=== PATIENT | female | born 1950 | race Caucasian/White ===

== ENCOUNTER 2022-08-30 07:04 | Outpatient (CLI) | payer MEDICARE, OTHER ==
--- NOTE | 2022-09-05 16:24 | Mammography Report ---
BILATERAL DIGITAL SCREENING MAMMOGRAM 3D/2D: 08/30/2022 CLINICAL: Routine screening. No prior exams were available for comparison. Both breasts are almost entirely fatty (category a/<25% glandular tissue). No significant masses, calcifications, or other findings are seen in either breast. IMPRESSION: NEGATIVE There is no mammographic evidence of malignancy. A 1 year screening mammogram is recommended. Based on the Tyrer Cuzick model (a risk assessment model) the patients lifetime risk is 1.7% and her 10 year risk is 1.2%. According to the ACR, ACS, and NCCN guidelines, an annual breast MRI exam barbara g with mammogram is recommended if the patients lifetime risk is 20% or greater. This exam was interpreted at Station ID: [id number]. NOTE: For mammograms, a report in lay terms will be sent to the patient. Approximately 15% of breast malignancies will not be visualized mammographically. In the management of a palpable breast mass, a negative mammogram must not discourage biopsy of a clinically suspicious lesion. Electronically Signed By: Kraig edwards/nubia:09/05/2022 07:26:00 ACR BI-RADS Category 1: Negative 3341F PARENCHYMAL PATTERN: (F) - The breast(s) demonstrate(s) diffuse fatty replacement. BI-RADS CATEGORY: (1) - 1 RECOMMENDATION: (ANNUAL) - Recommend routine annual screening mammography. [id number] 1 year screening LATERALITY: (B)
== END 2022-08-30 07:05 | disposition home or self-care (01) ==
LOC: DI.S 07:04
PROVIDERS: ATTEND Internal Medicine
DX: Z12.31 Encounter for screening mammogram for malignant neoplasm of breast (principal)

== ENCOUNTER 2023-05-23 09:18 | Emergency (ER) | payer MEDICARE, OTHER ==
[2023-05-23 09:38] VITALS: BP 176/65
--- NOTE | 2023-05-23 09:54 | XRAY Report ---
PROCEDURE: Hand 3 View RT INDICATIONS: Trauma TECHNIQUE: 3 views of the hand(s) acquired. COMPARISON: None. FINDINGS: Bones: No fractures or dislocations. Osteoarthritic changes throughout right-hand are seen with join t space narrowing, subchondral sclerosis and marginal formation more notably involving second and thi rd PIP and DIP joints. No suspicious bony lesions. Soft tissues: No suspicious soft tissue calcifications or masses. IMPRESSION: No acute bony abnormality. Osteoarthritic changes throughout right-hand as above. Reviewed by: Elan Giles MD on 05/23/2023 9:52 AM PDT Approved by: Elan Giles MD on 05/23/2023 9:52 AM PDT Station ID: [id number]
--- NOTE | 2023-05-23 10:37 | ED Physician Documentation ---
PD HPI UPPER EXT INJURY - Stated complaint Stated Complaint: RT HAND SWOLLEN - Chief complaint Chief Complaint: Ext Problem - History obtained from History obtained from: Patient - History of Present Illness Location: Right, Hand Type of injury: Fall (walking dog and tripped, landing to right hand. Bruising and swelling that persists.) Timing - onset: How many days ago (4) Improved by: Rest Worsened by: Moving, Palpating Associated symptoms: Swelling, Discolored (bruising). 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 - Allergies Allergies/Adverse Reactions: Allergies Allergy/AdvReac Type Severity Reaction Status Date / Time codeine Allergy Emesis Verified 05/23/23 09:35 - Social History Does the pt smoke?: No Smoking Status: Never smoker Does the pt drink ETOH?: No Does the pt have substance abuse?: No - Immunizations Immunizations are current?: Yes PD ED PE NORMAL - Vitals Vital signs reviewed: Yes - General General: Alert and oriented X 3, No acute distress, Well developed/nourished - Derm Derm: Normal color, Warm and dry - Extremities Extremities: Other (right hand dorsal aspect with brusiing and swelling, tender mid hand and carpals area. Normal sensation and color/cap refill in fingers. ) - Neuro Neuro: Alert and oriented X 3, No motor deficit, No sensory deficit, Normal speech Results - Vitals Vitals: Oxygen O2 Source Room air PD Medical Decision Making - ED course Complexity details: reviewed results (xray without fractures. ), considered differential (fall to hand with swelling and bruising. Can get xray to eval for fractures. ), d/w patient Departure - Departure Disposition: 01 Home, Self Care Clinical Impression: Fall from slip, trip, or stumble Qualifiers: Encounter type: initial encounter Qualified Code(s): W01.0XXA - Fall on same level from slipping, tripping and stumbling without subsequent striking against object, initial encounter Hand contusion Qualifiers: Encounter type: initial encounter Laterality: right Qualified Code(s): S60.221A - Contusion of right hand, initial encounter Condition: Stable Record reviewed to determine appropriate education?: Yes Instructions: ED Contusion Hand Comments: Your x-ray does not show any fractures. We can try to help the healing process of your hand with a splint that you can take on and off (Velcro ulnar gutter splint). I would also have you take Tylenol or ibuprofen or naproxen as needed for the pains and discomfort. Some anti-inflammatory such as the ibuprofen or naproxen taken regularly, twice daily,, may be beneficial as well. I would anticipate improvement over the next week or so. Forms: PCP List Discharge Date/Time: 05/23/23 11:35
== END 2023-05-23 11:35 | disposition home or self-care (01) ==
LOC: ED 09:18
DX: S60.221A Contusion of right hand, initial encounter (principal); W01.0XXA Fall on same level from slipping, tripping and stumbling without subsequent striking against object, initial encounter; Y93.K1 Activity, walking an animal
CPT/HCPCS: 99283

== ENCOUNTER 2024-04-17 08:27 | Outpatient (CLI) | payer MEDICARE, OTHER ==
[2024-04-17 08:43] LABS: BASOPHILS # (AUTO) 0.1 10^3/uL (0.0-0.1); BASOPHILS % (AUTO) 0.6 %; EOSINOPHILS # (AUTO) 0.1 10^3/uL (0.0-0.7); EOSINOPHILS % (AUTO) 1.4 %; HGB - HEMOGLOBIN 13.2 g/dL (12.0-16.0); LYMPHOCYTES # (AUTO) 2.2 10^3/uL (1.5-3.5); MEAN CORPUSCULAR HEMOGLOBIN 29.6 pg (27.0-31.0); MEAN CORPUSCULAR HGB CONC 32.2 g/dL (32.0-36.0); MEAN CORPUSCULAR VOLUME 91.9 fL (81.0-99.0); MEAN PLATELET VOLUME 9.6 fL (7.9-10.8); MONOCYTES # (AUTO) 0.5 10^3/uL (0.0-1.0); MONOCYTES % (AUTO) 6.7 %; NEUTROPHILS # (AUTO) 5.1 10^3/uL (1.5-6.6); NEUTROPHILS % (AUTO) 64.1 %; PLT - PLATELET COUNT 199 10^3/uL (130-450); RED BLOOD COUNT 4.46 10^6/uL (4.20-5.40); RED CELL DISTRIBUTION WIDTH 12.8 % (12.0-15.0)
[2024-04-17 08:57] LABS: ALBUMIN 4.7 g/dL (3.2-5.5); ALBUMIN/GLOBULIN RATIO 2.2 (1.0-2.2); ALKALINE PHOSPHATASE 47 IU/L (42-121); ALT ALANINE AMINOTRANSFERASE 33 IU/L (10-60); AST ASPARTATE AMINOTRANSFERASE 21 IU/L (10-42); BILIRUBIN,TOTAL 0.6 mg/dL (0.2-1.0); BUN - BLOOD UREA NITROGEN 17 mg/dL (6-20); CALCIUM 9.8 mg/dL (8.5-10.3); CARBON DIOXIDE - CO2 31 mmol/L (21-32); CHLORIDE 104 mmol/L (101-111); CHOLESTEROL 190 mg/dL; CREATININE 0.9 mg/dL (0.6-1.3); GFR - MDRD 62 (>89); GLUCOSE 104 mg/dL (74-104); HDL CHOLESTEROL 47 mg/dL; LDL CHOLESTEROL,CALCULATED 104 mg/dL; LDL/HDL RATIO 2.2 (<4.4); POTASSIUM 4.4 mmol/L (3.5-4.5); SODIUM 139 mmol/L (135-145); TOTAL PROTEIN 6.8 g/dL (6.4-8.9); TRIGLYCERIDES 195 mg/dL (48-352); VLDL CHOLESTEROL 39 mg/dL
[2024-04-17 09:13] LABS: THYROID STIMULATING HORMONE 2.28 uIU/mL (0.34-5.60)
== END 2024-04-17 08:28 | disposition home or self-care (01) ==
LOC: LAB 08:27
PROVIDERS: ATTEND Nurse Practitioner
DX: I10 Essential (primary) hypertension (principal); Z13.220 Encounter for screening for lipoid disorders; R63.5 Abnormal weight gain
CPT/HCPCS: 36415; 80053; 80061; 83721; 84443; 85025

== ENCOUNTER 2024-04-20 12:27 | Outpatient (CLI) | payer MEDICARE, OTHER ==
[2024-04-20 12:47] LABS: FECAL OCCULT BLOOD (FIT) NEGATIVE (NEGATIVE)
== END 2024-04-20 12:28 | disposition home or self-care (01) ==
LOC: LAB.R 12:27
PROVIDERS: ATTEND Physician Assistant Medical
DX: Z12.11 Encounter for screening for malignant neoplasm of colon (principal)
CPT/HCPCS: 82274

== ENCOUNTER 2024-06-09 10:51 | Outpatient (CLI) | payer MEDICARE, OTHER ==
--- NOTE | 2024-06-09 11:37 | Sleep Patient Instructions ---
Sleep Center Visit Summary - Patient Visit Information Reason for Visit: Initial consult for evaluation of sleep disordered breathing and other sleep issues. - Patient Instructions Instructions Attached: Sleep Study Additional Instructions: You will be completing a sleep study, either an in-lab polysomnography (PSG) or home sleep study (HST). You will follow-up in the sleep care office after the sleep study is completed to hear the results and talk about therapy, if needed. You will be called by our office staff to schedule this appointment, but you may contact us with any questions. - Clinic Information Contact: [facility] [address] [place] [address] [email or web address] T: [phone]
--- NOTE | 2024-06-09 11:44 | SLEEP CARE CONSULTATION ---
Information from patient questionnaire entered by Donna Santos. I have reviewed and concur with the information entered by Donna Santos. This document represents the service I personally performed and the decisions made by me, Roz Sanchez ARNP. History of Present Illness Service Date and Time: 06/09/2024 1051 Reason for Visit: New patient Chief Complaint: reports: Snoring, Excessive daytime sleepiness, Observed pauses in breathing, Frequent awakenings at night Date of Onset: at least 10 yr Usual bedtime: 2129 Time it takes to fall asleep: 10MINS Snores at night: Yes Observed to quit breathing while asleep: Yes Sleeps alone due to snoring: No (NA) Number of times waking at night: 2-3 Reasons for waking at night: reports: Snoring, Bathroom. denies: Choking, Gasping for air Toss, Turn, or Twitch while sleeping: Yes Recalls having dreams: Yes Usually gets out of bed at: 0600 Feels refreshed in the morning: Yes ("most usually", sometimes not) Morning headache: No Sleepy or fatigued during the day: Yes Ever fallen asleep while driving: No Takes day naps: No Dreams during day naps: No Prior sleep studies: No Additional HPI information: I had the pleasure of seeing GARRETT VARGAS today regarding the possibility of her having a sleep disorder. Her current complaints are excessive daytime sleepiness, frequent night awakenings, observed pauses in breathing and snoring. She says her daughter told her, after sharing motel room for a trip, that she was stopping breathing and snoring "like a transplant surgeon". She does wake herself up snoring and with a very dry throat. She does not take naps but if she sits down she can feel herself nodding off but will not take a nap. She does not want it to affect her being able to go to sleep at night. She says she walks a lot, about 2 miles a day. She has tried the Keto diet but is now just trying to make better food choices. The patient tells me that she normally goes to bed around 9:30 pm, and it takes her approximately 10 minutes to fall asleep. She has been told that she snores loudly and irregularly at night. She has been observed to stop breathing in her sleep. She can recall waking up on the average of 2-3 times during the night. Most of the time she wakes up because of bathroom and snoring. She has occasionally awakened for her own snoring. There is a lot of tossing and turning in her sleep. Generally she can recall having dreams. She usually wakes up at 0600 and feels refreshed. She usually does not have a morning headache. During the day she complains of feeling sleepy and fatigued. She has never fallen a sleep while driving nor has any accident due to sleepiness. She usually does not take naps during the day. She reports having impaired concentration during the day. There is no somniloquy (sleep talking) or somnambulism (sleep walking). - Parasomnia Symptoms Ever been unable to move upon waking from sleep: No Walks in sleep: No Talks in sleep: No Ever acted out dreams in sleep: No Ever felt weak in the knees when startled or emotional: No Bothered by creepy, crawly, restless sensations in legs: Yes (sometimes) Problems with memory or concentration: Yes (some lapses in memory) Subjective Initial [place] Sleepiness Scale score: 7 (06/09/24) Past Medical History Past Medical History: reports: Hypertension, Arthritis, GERD, Other (ESSENTIAL TREMOR, TMJD; osteoporosis) Social History The patient's occupation is a RE. Patient is Single and lives in . Have you smoked in the past 12 months: No Alcohol use: No Caffeine use: No Caffeine amount and frequency: has decaff coffee, 2 in mornings Family History Family history of sleep disordered breathing: Yes Family Hx Sleep Apnea: Mother: Snoring, Father: Snoring Allergies and Home Medications Known drug allergies: Yes ( LISTED) Drug allergies reviewed: Yes Home medication list reviewed: Yes (as listed) Allergy and home medication list: Allergies codeine Allergy (Verified 06/09/24 10:55) Emesis Home Medications Medication Instructions Recorded Confirmed Last Taken Type Acetaminophen [Tylenol] See Rx Instructions .ROUTE .COMPLEX 06/09/24 06/09/24 Unknown History Alendronate [Fosamax] See Rx Instructions .ROUTE .COMPLEX 06/09/24 06/09/24 Unknown History Ascorbic Acid [Vitamin C] See Rx Instructions .ROUTE .COMPLEX 06/09/24 06/09/24 Unknown History Calcium Carbonate See Rx Instructions .ROUTE .COMPLEX 06/09/24 06/09/24 Unknown History Cholecalciferol (Vitamin D3) See Rx Instructions .ROUTE .COMPLEX 06/09/24 06/09/24 Unknown History [Vitamin D3] Multivitamin See Rx Instructions .ROUTE .COMPLEX 06/09/24 06/09/24 Unknown History Gambrills-3 Fatty Acids [Gambrills-3] See Rx Instructions .ROUTE .COMPLEX 06/09/24 06/09/24 Unknown History Omeprazole See Rx Instructions .ROUTE .COMPLEX 06/09/24 06/09/24 Unknown History Propranolol [Inderal] See Rx Instructions .ROUTE .COMPLEX 06/09/24 06/09/24 Unknown History Valsartan See Rx Instructions .ROUTE .COMPLEX 06/09/24 06/09/24 Unknown History hydroCHLOROthiazide [Hydrodiuril] See Rx Instructions .ROUTE .COMPLEX 06/09/24 06/09/24 Unknown History Review of Systems Weight gain over past 5 years: 40 over last year Weight loss over past 5 years: 40 last year Cardiovascular: reports: high blood pressure Gastrointestinal: reports: heartburn Neurological: denies: headaches Psychiatric: denies: anxiety, depression Ear/Nose/Throat: reports: sinus problems, tonsillectomy, wisdom teeth removed Musculoskeletal: reports: joint pain Immunologic: reports: sneezing Physical Exam Vital signs obtained and entered by: DONNA Lock MA Blood Pressure: 157/78 (RIGHT ARM) Cuff size: long Heart Rate: 85 O2 Saturation: 97 Height: 5 ft 1.25 in Weight: 186 lb 9.6 oz Body Mass Index: 34.9 BMI Classification: Obese Neck circumference: 16.5 Nostrils: patent to airflow Mouth and throat: narrow oropharynx Soft palate: normal Hard palate: normal Uvula: normal Uvula visualization: 50% Mallampati Class II Tongue: normal in size Tonsils: absent bilaterally Neck: normal w/o lymphadenopathy or thyromegaly Heart: regular rate and rhythm Lungs: clear bilaterally Impression and Plan 1. Suspected Obstructive Sleep Apnea-Hypopnea Syndrome, as suggested by a histo ry of loud and irregular snoring, observed cessation of breath while asleep, frequent awakening during the night, cognitive impairment, and excessive daytime sleepiness. Narrow oropharynx and obesity are common predisposing factors for obstructive sleep apnea-hypopnea syndrome. I recommend proceeding to polysomnography to confirm the diagnosis and to assess severity. If the patient has significant sleep disordered breathing, a manual CPAP titration study will also be performed to find the optimal treatment pressure. I informed the patient of what the sleep studies involve and after some discussion, obtained agreement to proceed. The pathophysiology of obstructive sleep apnea-hypopnea syndrome was discussed with the patient and health risks of cardiovascular and cerebrovascular disease if not treated. Risks of drowsy driving discussed in detail and patient advised to avoid long distance driving and to machine tack puller at the first sign of drowsiness. Patient agreed to plan. * Schedule polysomnography * Avoid long distance driving or driving when feeling sleepy. * Avoid alcohol, sedative and muscle relaxant around bedtime. * Attempt to lose weight. * Review instructions provided by trained office staff on how to prepare for the sleep study. * Return for follow-up after sleep study completed. Counseling Topics: Weight loss health impact Plan: PSG/HST and followup Visit Type: In Office Time Spent with Patient (minutes): 30 Provider Statement: I spent 100% of the Face to Face Visit with the patient with greater than 50% spent counseling the patient and coordination of care.
[2024-06-09 11:51] VITALS: BP 157/78; O2SAT 97
== END 2024-06-09 10:52 | disposition home or self-care (01) ==
LOC: SC 10:51
PROVIDERS: ATTEND Nurse Practitioner Family
DX: R06.81 Apnea, not elsewhere classified (principal); G47.8 Other sleep disorders; R41.89 Other symptoms and signs involving cognitive functions and awareness; G47.10 Hypersomnia, unspecified; R06.83 Snoring; E66.9 Obesity, unspecified; Z68.34 Body mass index [BMI] 34.0-34.9, adult
CPT/HCPCS: 99203; G0463; 99212

== ENCOUNTER 2024-06-22 14:28 | Outpatient (CLI) | payer MEDICARE, OTHER ==
[2024-06-22 16:44] LABS: ALBUMIN 4.4 g/dL (3.2-5.5); ALBUMIN/GLOBULIN RATIO 1.8 (1.0-2.2); ALKALINE PHOSPHATASE 48 IU/L (42-121); ALT ALANINE AMINOTRANSFERASE 43 IU/L (10-60); AST ASPARTATE AMINOTRANSFERASE 27 IU/L (10-42); BILIRUBIN,TOTAL 0.4 mg/dL (0.2-1.0); BUN - BLOOD UREA NITROGEN 19 mg/dL (6-20); CALCIUM 9.5 mg/dL (8.5-10.3); CARBON DIOXIDE - CO2 27 mmol/L (21-32); CHLORIDE 103 mmol/L (101-111); CREATININE 0.9 mg/dL (0.6-1.3); CRP - C-REACTIVE PROTEIN < 0.5 mg/dL (<0.5); GFR - MDRD 62 (>89); GLUCOSE 109 mg/dL (74-104); POTASSIUM 3.8 mmol/L (3.5-4.5); SODIUM 139 mmol/L (135-145); TOTAL PROTEIN 6.8 g/dL (6.4-8.9)
[2024-06-23 19:08] LABS: THYROGLOBULIN ANTIBODY <1.0 IU/mL (0.0-0.9); THYROID PEROXIDASE (TPO) AB <9 IU/mL (0-34)
== END 2024-06-22 14:29 | disposition home or self-care (01) ==
LOC: LAB 14:28
PROVIDERS: ATTEND Obstetrics & Gynecology
DX: R10.12 Left upper quadrant pain (principal); R10.32 Left lower quadrant pain; R63.4 Abnormal weight loss; N95.1 Menopausal and female climacteric states; R23.2 Flushing
CPT/HCPCS: 36415; 80053; 81599; 86140; 86376; 86800

== ENCOUNTER 2024-06-30 07:29 | Outpatient (CLI) | payer MEDICARE, OTHER ==
[2024-06-30] MEDS ORDERED: iohexoL-300 100 ML VIAL ONE (07:35)
[2024-06-30] MEDS ORDERED: DIATRIZOATE MEGLU/DIATRIZO SOD 30 ML BOTTLE PO ONE (07:35)
[2024-06-30] MEDS: DIATRIZOATE MEGLU/DIATRIZO SOD 30 ML BOTTLE PO ONE (09:07)
[2024-06-30] MEDS: iohexoL-300 100 ML VIAL IVP ONE (09:08)
--- NOTE | 2024-06-30 15:03 | CT Report ---
PROCEDURE: Abdomen/Pelvis W INDICATIONS: ABN WEIGHT LOSS, ABD PAIN CONTRAST: omni 300 100ml TECHNIQUE: After the administration of intravenous contrast, a CT scan of the abdomen and pelvis was performed. Images were recorded and evaluated at appropriate window settings. Reformats: coronal and sagittal. F or radiation dose reduction, the following was used: automated exposure control, adjustment of mA and /or kV according to patient size. COMPARISON: None. FINDINGS: Image quality: Diagnostic. Lower chest: 4 mm juxtapleural nodule in the left lower lobe; location and smooth margins favors a be nign intrapulmonary lymph node. Calcified granuloma of the right lower lobe. Small hiatal hernia. Liver: Hepatic steatosis. Gallbladder: No radiopaque stones or wall thickening. Biliary tree: No intrahepatic or extrahepatic dilation, accounting for age. Spleen: No splenomegaly. Pancreas: No pancreatic ductal dilation. Adrenals: No adrenal nodule. Kidneys and ureters: No hydronephrosis. No renal cystic lesion which requires follow up. No solid mas s. Stomach, bowel and peritoneum: No gastric or small bowel dilation. No abnormal wall thickening. No pa thologic free fluid. Diverticulosis without evidence of diverticulitis. Lymph nodes: No central or retroperitoneal adenopathy. Vessels: No infrarenal aortic aneurysm. Patent portal vein. PELVIS Reproductive organs: Hysterectomy. Ovaries not visualized. Bladder: No abnormal wall thickening, accounting for underdistention. Pelvic lymph nodes: No pelvic adenopathy by size criteria. Bones: No aggressive osseous abnormality. Other: No significant ventral or inguinal hernia. IMPRESSION: No acute findings to explain patient's weight loss and abdominal pain. Consider screening colonoscopy and mammography if not up-to-date. At least moderate hepatic steatosis. Correlate with LFTs, as elevated LFTs may indicate steatohepatit is. Reviewed by: Alec Cleary MD on 06/30/2024 3:01 PM PDT Approved by: Alec Cleary MD on 06/30/2024 3:01 PM PDT Station ID: [id number]
== END 2024-06-30 07:30 | disposition home or self-care (01) ==
LOC: DI 07:29
PROVIDERS: ATTEND Obstetrics & Gynecology
DX: R10.12 Left upper quadrant pain (principal); R10.32 Left lower quadrant pain; R63.4 Abnormal weight loss; K76.0 Fatty (change of) liver, not elsewhere classified
CPT/HCPCS: 74177; Q9963; Q9967